=== PATIENT | female | born 1970 | race African-American/Black ===

== ENCOUNTER 2016-07-28 04:24 | Emergency (ER) | payer OTHER ==
[2016-07-28 04:53] VITALS: BP 145/89; PULSE 106; TEMP 98.7; BMI 31.4
--- NOTE | 2016-07-28 04:53 | PDOC ---
History of Present Illness - General Chief Complaint: Head/Neck problem Stated Complaint: NUMBNESS IN ARM AND IN LIPS Time Seen by Provider: 07/28/16 04:31 History Source: Patient Exam Limitations: No Limitations - History of Present Illness Initial Comments: 07/28/16 04:50 46yo Female patient with PmHx: HTN presents to ED c/o numbness to right arm and lower lip. Patient states numbness to right arm began 2-3 days ago which patient states she did not think much of. However, while getting ready for work this morning patient experienced numbness to lower lip. She take Losartan and HCTZ for HTN. LNMP: 2 weeks ago. She denies change in vision, h/a, CP, Abd pain , n/v/d, back pain, diff breathing, rash, fever, or any other complaints at this time. Associated Symptoms: denies: denies symptoms, confusion, fatigue, fever/chills, insomnia, loss of consciousness, muscle spasms, nausea/vomiting, numbness in legs/feet, paresthesia, ringing in ears, seizures, sleepy, slurred speech, tingling in legs/feet, trouble walking, vision changes, weakness, other Past History - Travel Traveled outside of the country in the last 30 days: No Close contact w/someone who was outside of country & ill: No - Past Medical History Allergies/Adverse Reactions: Allergies Allergy/AdvReac Type Severity Reaction Status Date / Time No Known Allergies Allergy Verified 07/28/16 04:53 Home Medications: Ambulatory Orders Hydrochlorothiazide [Hctz -] 0 mg PO DAILY 07/28/16 Losartan Potassium 100 mg PO DAILY 07/28/16 Neuro Specific PMHX - Complaint Specific PMHX Glaucoma: No Herniated Disk: No Laminectomy: No Migraine: No Multiple Sclerosis: No Neuropathy: No TIA: No Review of Systems - Review of Systems Able to Perform ROS?: Yes Is the patient limited [place]ian proficient: No Constitutional: No: Chills, Fever, Malaise, Night Sweats HEENTM: No: Blurred Vision, Double Vision, Ocular Prothesis, Throat Pain, Throat Swelling, Mouth Pain, Difficulty Swallowing, Mouth Swelling Respiratory: No: Cough, Orthopnea, Shortness of Breath, Stridor, Wheezing Cardiac (ROS): No: Chest Pain, Edema, Lightheadedness, Palpitations, Syncope, Chest Tightness ABD/GI: No: Constipated, Diarrhea, Nausea, Poor Appetite, Poor Fluid Intake, Rectal Bleeding, Vomiting, Abdominal cramping : No: Burning, Dysuria, Discharge, Frequency, Flank Pain, Hematuria, Pain Musculoskeletal: No: Back Pain, Muscle Weakness, Neck Pain Integumentary: No: Bruising, Erythema, Lesions, Lumps, Pruritus, Rash, Sweating Neurological: Yes: Numbness. No: Headache, Paresthesia, Seizure, Tingling, Tremors, Weakness, Unsteady Gait, Ataxia, Dizziness Psychiatric: No: Anxiety, Depression All Other Systems: Reviewed and Negative *Physical Exam - Physical Exam General Appearance: Yes: Nourished, Appropriately Dressed. No: Apparent Distress, Mild Distress, Moderate Distress, Severe Distress HEENT: positive: EOMI, MADAY, Normal ENT Inspection, Normal Voice, Symmetrical, TMs Normal, Pharynx Normal. negative: Photophobia, Pharyngeal Erythema, Tonsillar Exudate, Tonsillar Erythema, Nasal Congestion, Rhinorrhea, TM Bulging , TM Dull, TM Erythema Neck: positive: Trachea midline, Normal Thyroid, Supple. negative: Rigid, Decreased range of motion, Stridor, Lymphadenopathy (R), Lymphadenopathy (L) Respiratory/Chest: positive: Lungs Clear, Normal Breath Sounds. negative: Respiratory Distress, Accessory Muscle Use, Labored Respiration, Rapid RR, Stridor, Wheezing Cardiovascular: positive: Regular Rhythm, Regular Rate. negative: Edema, JVD, Murmur Gastrointestinal/Abdominal: positive: Normal Bowel Sounds, Soft. negative: Distended, Guarding, Rebound, Tenderness Musculoskeletal: positive: Normal Inspection. negative: CVA Tenderness Extremity: positive: Normal Capillary Refill, Normal Inspection, Normal Range of Motion. 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 NML intact, Fully Oriented, Alert, Normal Mood/ Affect, Normal Response, Motor Strength 09/23 ED Treatment Course - LABORATORY CBC & Chemistry Diagram: 07/28/16 05:08 07/28/16 05:08 *DC/Admit/Observation/Transfer Diagnosis at time of Disposition: Right hand paresthesia - Discharge Dispostion Disposition: HOME Condition at time of disposition: Stable Admit: No - Referrals Referrals: Heather Kwon MD [Primary Care Provider] - Luz Maria Childs MD [Staff Physician] - - Patient Instructions Printed Discharge Instructions: Carpal Tunnel Syndrome, Peripheral Neuropathy Additional Instructions: FOLLOW UP WITH Radha LORENZ (NEUROLOGY). CALL TO SCHEDULE APPOINTMENT. ALSO, FOLLOW UP WITH YOUR PRIMARY CARE PROVIDER DR. KWON. RETURN IF SYMPTOMS WORSEN, OR ANY CONCERNS FOR FURTHER EVALUATION. Print Language: DANISH - Post Discharge Activity Work/School Note: Back to Work NIH Stroke Scale - Last Known Well Date/Time & Onset Date Last Known Well: 07/27/16 Time Last Known Well: 22:00 - Initial Evaluation Level of consciousness: Alert Ask patient the month and their age: Answers both correctly Ask patient to open & close eyes; make fist and let go: Obeys both correctly Best gaze (horizontal eye movement): Normal Visual field testing: No visual field loss Facial paresis (Show teeth/raise eyebrows/close eyes tight): Normal symmetrical movement Motor Function: Left Arm: Normal Motor Function: Right Arm: Normal (extends arm 90 (or 45) degrees for 10 seconds without drift Motor Function: Left Leg: Normal (extends leg 30 degrees for 5 seconds without drift) Motor Function: Right Leg: Normal (extends leg 30 degrees for 5 seconds without drift) Limb Ataxia: No ataxia Sensory(Use pinprick test arms,legs,trunk,face/side to side): Normal Best language (Describe picture, name items, read sentences): No Aphasia Dysarthria (read several words): Normal articulation Extinction and Inattention: No abnormality - Total Score NIH Stroke Scale Score: 0
[2016-07-28 05:26] LABS: URINE APPEARANCE CLEAR; URINE BILIRUBIN NEGATIVE (NEGATIVE); URINE BLOOD NEGATIVE (NEGATIVE); URINE COLOR COLORLESS; URINE GLUCOSE (UA) NEGATIVE (NEGATIVE); URINE KETONE NEGATIVE (NEGATIVE); URINE LEUK ESTERASE NEGATIVE (NEGATIVE); URINE NITRITE NEGATIVE (NEGATIVE); URINE PROTEIN NEGATIVE (NEGATIVE); URINE UROBILINOGEN NEGATIVE E.U./dl (0.2-1.0)
[2016-07-28 05:27] LABS: BASOPHIL 1.1 % (0-2.0); EOSINOPHIL 0.9 % (0-4.5); MCH 28.7 pg (25.7-33.7); MCHC 33.1 g/dl (32.0-36.0); MEAN CELL VOLUME 86.6 fl (80-96); MEAN PLT VOLUME 8.9 fl (7.5-11.1); NEUTROPHILS 54.9 % (42.8-82.8); PLATELET COUNT 172 K/MM3 (134-434); RDW 14.3 % (11.6-15.6); WHITE BLOOD COUNT 5.1 K/mm3 (4.0-10.0)
--- NOTE | 2016-07-28 05:38 | PDOC ---
*Physical Exam - Vital Signs Last Vital Signs Temp Pulse Resp BP Pulse Ox 98.7 F 106 H 18 145/89 100 07/28/16 04:50 07/28/16 04:50 07/28/16 04:50 07/28/16 04:50 07/28/16 04:50 ED Treatment Course - LABORATORY CBC & Chemistry Diagram: 07/28/16 05:08 07/28/16 05:08 - ADDITIONAL ORDERS Additional order review: Laboratory Results 07/28/16 05:08 Urine Color Colorless Urine Appearance Clear Urine pH 6.0 Ur Specific [place] 1.004 Urine Protein Negative Urine Glucose (UA) Negative Urine Ketones Negative Urine Blood Negative Urine Nitrite Negative Urine Bilirubin Negative Urine Urobilinogen Negative Ur Leukocyte Esterase Negative Urine HCG, Qual Negative 07/28/16 05:08 RBC 4.85 MCV 86.6 MCHC 33.1 RDW 14.3 MPV 8.9 Neutrophils % 54.9 Lymphocytes % 33.8 Monocytes % 9.3 Eosinophils % 0.9 Basophils % 1.1 Medical Decision Making - Medical Decision Making 07/28/16 05:37 agree with care from LISA Turner *DC/Admit/Observation/Transfer Diagnosis at time of Disposition: Numbness and tingling in right hand - Discharge Dispostion Disposition: HOME Condition at time of disposition: Stable - Referrals Referrals: Luz Maria Childs MD [Staff Physician] - Heather Montero MD [Primary Care Provider] - - Patient Instructions Printed Discharge Instructions: Peripheral Neuropathy, Carpal Tunnel Syndrome Additional Instructions: FOLLOW UP WITH Radha LORENZ (NEUROLOGY). CALL TO SCHEDULE APPOINTMENT. ALSO, FOLLOW UP WITH YOUR PRIMARY CARE PROVIDER DR. MONTERO. RETURN IF SYMPTOMS WORSEN, OR ANY CONCERNS FOR FURTHER EVALUATION. Print Language: BOTSWANAN - Post Discharge Activity Work/School Note: Back to Work
[2016-07-28 05:49] LABS: INR 1.04 (0.82-1.09); PROTHROMBIN TIME (PATIENT) 11.4 SEC (9.98-11.88)
[2016-07-28 05:59] LABS: ALBUMIN 3.9 g/dl (3.4-5.0); ANION GAP 6 (8-16); BILIRUBIN,TOTAL 0.6 mg/dL (0.2-1.0); CALCIUM 9.5 mg/dL (8.5-10.1); CO2 29 mmol/L (21-32); GLUCOSE,RANDOM 102 mg/dL (74-106); SGOT/AST 11 U/L (15-37); SGPT/ALT 19 U/L (12-78); TOT PROT 7.4 g/dl (6.4-8.2)
[2016-07-28 06:08] LABS: ALK PHOS 40 U/L (45-117); THYROID STIMULATING HORMONE 1.52 uIU/ml (0.358-3.74); TROPONIN I < 0.02 ng/ml (0.00-0.05)
--- NOTE | 2016-07-28 10:26 | EKG ---
Test Reason : Blood Pressure : / mmHG Vent. Rate : 076 BPM Atrial Rate : 076 BPM P-R Int : 164 ms QRS Dur : 094 ms QT Int : 368 ms P-R-T Axes : 052 031 021 degrees QTc Int : 414 ms NORMAL SINUS RHYTHM NORMAL ECG WHEN COMPARED WITH ECG OF 21-FEB-2011 09:12, NO SIGNIFICANT CHANGE WAS FOUND Confirmed by CECY GROSS MD ([id number]) on 07/28/2016 10:26:18 AM Referred By: Confirmed By:CECY GROSS MD
== END 2016-07-28 06:59 | disposition home or self-care (01) ==
LOC: JER 04:24
DX: R20.0 Anesthesia of skin (principal); G62.9 Polyneuropathy, unspecified; I10 Essential (primary) hypertension
CPT/HCPCS: 36415; 70450-TC; 80053; 81003; 82550; 82553; 84443; 84484; 84703; 85025; 85610; 93005; 93010; 99282-25